=== PATIENT | female | born 2000 | race Caucasian/White ===

== ENCOUNTER 2022-06-25 13:18 | Emergency (ER) | payer OTHER ==
[~2022-06-25] VITALS: Ht 315 cm; Wt 91.0 kg
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
--- NOTE | 2022-06-25 15:13 | NUR ---
TC TO "[facility]" FOR ADVOCATE SERVICES . AN ADVOCATE WILL BE ARRIVING SHORTLY.
[2022-06-25 15:20] LABS: URINE HCG NEGATIVE (NEG)
[2022-06-25] MEDS ORDERED: LEVONORGESTREL 1.5MG tablet 1.5 MG TABLET PO ONE (15:20)
[2022-06-25] MEDS ORDERED: azithromycin 250mg tablet PO ONE (15:20)
[2022-06-25] MEDS ORDERED: CefTRIAXone 500MG IM Kit w/LIDOcaine (for pt below or = to 150kg) IM ONE (15:20)
[2022-06-25] MEDS ORDERED: TINIDAZOLE 500 MG TABLET PO ONE (15:20)
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
[2022-06-25 18:42] VITALS: BP 145/100
== END 2022-06-25 18:42 | disposition home or self-care (01) ==
LOC: ER 13:19 → EEVIPCON 13:19 → ER 18:42
DX: T76.21XA Adult sexual abuse, suspected, initial encounter (principal); K21.9 Gastro-esophageal reflux disease without esophagitis; F17.200 Nicotine dependence, unspecified, uncomplicated; Z72.89 Other problems related to lifestyle; Y08.89XA Assault by other specified means, initial encounter; Y93.89 Activity, other specified; Y92.89 Other specified places as the place of occurrence of the external cause; Y99.8 Other external cause status
CPT/HCPCS: 81025; 96372; 99284; J0696